=== PATIENT | male | born 1990 | race Two or more races ===

== ENCOUNTER 2021-05-15 15:27 | Emergency (ER) | payer MEDICAID ==
[~2021-05-15] VITALS: Ht 182.9 cm; Wt 90.7 kg
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
[2021-05-15] MEDS ORDERED: HYDROCODONE/APAP 10/325MG TABLET ONE (16:28)
[2021-05-15] MEDS ORDERED: ONDANSETRON 4 MG TAB.RAPDIS ONE (16:29)
[2021-05-15] MEDS ORDERED: HYDROCODONE/APAP 10/325MG TABLET PO ONE (16:30)
[2021-05-15] MEDS ORDERED: ONDANSETRON 4 MG TAB.RAPDIS SL ONE (16:30)
--- NOTE | 2021-05-15 18:32 | NUR ---
patient reassess condition improved awaiting for Md re-evaluation.
[2021-05-15] MEDS ORDERED: DICL50TA7 PO (19:25)
[2021-05-15] MEDS ORDERED: BACITRACIN ZINC OINT PACKET 1 EA PACKET TP ONE (19:30)
[2021-05-15 19:45] VITALS: BP 122/72
--- NOTE | 2021-05-15 19:45 | NUR ---
Patient discharged to home in stable condition. Written and verbal after care instructions given. Patient verbalizes understanding of instruction and RX. Pt ambulated out of ED. VSS.
== END 2021-05-15 19:46 | disposition home or self-care (01) ==
LOC: ER 15:30
DX: S40.012A Contusion of left shoulder, initial encounter (principal); S60.212A Contusion of left wrist, initial encounter; S50.812A Abrasion of left forearm, initial encounter; M79.10 Myalgia, unspecified site; M79.661 Pain in right lower leg; V49.49XA Driver injured in collision with other motor vehicles in traffic accident, initial encounter; Y93.89 Activity, other specified; Y92.413 State road as the place of occurrence of the external cause; Y99.8 Other external cause status
CPT/HCPCS: 73030; 73060; 73080; 73090; 73110; 73130; 73590; 99284; Q0162